=== PATIENT | male | born 1950 | race Two or more races ===

== ENCOUNTER → 2021-09-28 | Emergency (ER) | payer OTHER ==
[~2021-09-28] VITALS: Ht 162.6 cm; Wt 68.0 kg
[2021-09-28 23:35] VITALS: BP 128/74
== END | disposition left against medical advice (07) ==
LOC: EDUNIT# 23:20 → EDBD 23:20 → ER 23:20
DX: M79.671 Pain in right foot (principal); Z53.21 Procedure and treatment not carried out due to patient leaving prior to being seen by health care provider